=== PATIENT | male | born 1965 | race Caucasian/White ===

== ENCOUNTER 2021-04-20 10:31 | Emergency (ER) | payer OTHER ==
[2021-04-20] MEDS ORDERED: predniSONE 20 MG TAB ONE (11:03)
== END 2021-04-20 11:13 | disposition home or self-care (01) ==
LOC: NAV ERS 10:31
DX: R21 Rash and other nonspecific skin eruption (principal); I10 Essential (primary) hypertension; E11.9 Type 2 diabetes mellitus without complications; Z79.899 Other long term (current) drug therapy
CPT/HCPCS: 99282; J7512